=== PATIENT | male | born 1965 | race American Indian/Alaskan Native ===

== ENCOUNTER 2017-02-09 06:47 | Day surgery (SDC) | payer MEDICAID ==
[2017-02-09 07:06] VITALS: BMI 33.3
[2017-02-09] MEDS ORDERED: Midazolam 2 MG/2 ML VIAL ONE (08:10)
[2017-02-09] MEDS ORDERED: Lidocaine Hydrochloride 5 ML INJ ONE (08:10)
[2017-02-09] MEDS ORDERED: Propofol 10 mg/ml Inj (20 ML) ONE (08:10)
[2017-02-09] MEDS ORDERED: Lactated Ringer's 500 ML IV SCH (08:15)
[2017-02-09 08:35] VITALS: TEMP 97.8
[2017-02-09 09:11] VITALS: O2SAT 98
[2017-02-09 09:38] VITALS: BP 133/84; PULSE 83; RESP 18
== END 2017-02-09 09:35 | disposition home or self-care (01) ==
LOC: C.ENDO 06:47
PROVIDERS: ATTEND Internal Medicine
DX: R13.10 Dysphagia, unspecified (principal); K20.8 Other esophagitis; K29.70 Gastritis, unspecified, without bleeding; E11.9 Type 2 diabetes mellitus without complications; I10 Essential (primary) hypertension; Z12.11 Encounter for screening for malignant neoplasm of colon
CPT/HCPCS: 43239; 82948; 88305; J2250; J2704; J7120

== ENCOUNTER 2017-03-30 05:40 | Day surgery (SDC) | payer MEDICAID ==
[2017-03-30 06:45] VITALS: BMI 29.9
[2017-03-30] MEDS ORDERED: Lactated Ringer's 1,000 ML IV ONE (07:55)
--- NOTE | 2017-03-30 07:57 | CP.SDSHP ---
Same Day Surgery H & P - History Proposed Procedure: Colonoscopy Pre-Op Diagnosis: Colon cancer screening - Previous Medical/Surgical History Previous Surgical History: egd - Allergies Allergies: Allergies Penicillins Allergy (Verified 02/09/17 07:03) SWELLING PPD black rubber mix Allergy (Verified 02/09/17 07:03) SWELLING - Physical Exam General Appearance: nl Vital Signs: Vital Signs 03/30/17 06:45 Temperature 98 F Pulse Rate 80 Respiratory 20 Rate Blood Pressure 139/75 O2 Sat by Pulse 97 Oximetry Mental Status: Alert & Oriented x3 Neuro: WNL Heart: WNL Lungs: WNL GI: WNL - {Optional Preform as Required} Abdomen: WNL - Impression Impression: colon cancer screening Pt. Evaluated Today:Candidate for Anesthesia & Procedure: Yes - Date & Time Date: 03/30/17 Time: 07:57 Short Stay Discharge - Short Stay Discharge Admitting Diagnosis/Reason for Visit: SCREENING Disposition: HOME/ ROUTINE
[2017-03-30] MEDS ORDERED: Propofol 10 mg/ml Inj (20 ML) ONE ×2 (08:00→08:11)
[2017-03-30] MEDS ORDERED: Lactated Ringer's 500 ML IV SCH (08:00)
[2017-03-30] MEDS ORDERED: Simethicone 40 mg/0.6 ml Liquid (30 ml) ONE (08:01)
[2017-03-30] MEDS ORDERED: Lidocaine Hydrochloride 5 ML INJ ONE (08:12)
[2017-03-30 08:48] VITALS: TEMP 98.7
[2017-03-30 09:49] VITALS: BP 118/66; PULSE 74; RESP 15; O2SAT 97
== END 2017-03-30 09:46 | disposition home or self-care (01) ==
LOC: C.ENDO 05:40
PROVIDERS: ATTEND Internal Medicine
DX: D12.3 Benign neoplasm of transverse colon (principal); K64.8 Other hemorrhoids
CPT/HCPCS: 45380; 82948; J2704; J3010; J7120